=== PATIENT | male | born 1955 | race Caucasian/White ===

== ENCOUNTER 2016-12-10 22:25 | Emergency (ER) | payer MEDICAID, OTHER ==
[~2016-12-10 22:25] MED LIST: ALBU0.08 NEB; ALBUAER3 INH; ASPI81TA11 PO; BUPR1TAB29 PO; CYCL1TAB29 PO; IBUP800T23 PO; LOVA40TA PO; SPIRCAP INH; SYMB160A INH; TRAZ50TA12 PO
[2016-12-10 22:30] VITALS: BP 148/93; PULSE 102; RESP 16; TEMP 97.7; O2SAT 98
[2016-12-10] MEDS ORDERED: SODIUM CHLOR 0.9% 1000 ML INJ 1,000 ML IV SCH (22:35)
[2016-12-10] MEDS ORDERED: SODIUM CHLORIDE 0.9% FLUSH 5 ML FLUSH IVF PRN (22:45)
--- NOTE | 2016-12-10 22:45 | PD ---
HPI Chief Complaint: Laceration/Skin Injury Time Seen by Provider: 22:35 Travel History International Travel<30 days: No Contact w/Intl Traveler<30days: No Traveled to known affect area: No History of Present Illness HPI Patient is 61-year-old male presents after trip and fall from home. Patient admits to heavy drinking tonight. He is coming by his girlfriend. Apparently patient tripped over cobblestoning pathway and impacted his face cutting the medial canthus of his right eye. Patient is fairly belligerent on arrival and states he doesn't need stitches and wants to leave. He is clearly clinically intoxicated. Denies any loss of consciousness. His intoxication limits his other history. PFSH Past Medical History COPD: Yes Diminished Hearing: No Respiratory: Yes (EMPHYSEMA/COPD) Social History Alcohol Use: Yes (Daily) Tobacco Use: Yes (2 PPD) Substance Use: No Allergies-Medications (Allergen,Severity, Reaction): Coded Allergies: No Known Allergies (Unverified , 12/10/16) Reported Meds & Prescriptions Reported Meds & Active Scripts Active Albuterol Neb (Albuterol Sulfate) 2.5 Mg/3 Ml Neb 2.5 Mg NEB TID NEB PRN Aspirin EC (Aspirin) 81 Mg Tabdr 81 Mg PO DAILY Symbicort Inh (Budesonide/Formoterol Fumarate) 160-4.5 Mcg/Act Aero 2 Puff INH Q12HR Reported Lovastatin 40 Mg Tab 40 Mg PO DAILY Bupropion HCl ER 12 HR (Bupropion HCl) 150 Mg Tab 150 Mg PO Q12HR Trazodone (Trazodone HCl) 50 Mg Tab 50 Mg PO HS Spiriva Handihaler (Tiotropium Inh) 18 Mcg Cap 18 Mcg INH DAILY 1 capsule = 18 mcg Ibuprofen 800 Mg Tab 800 Mg PO Q6HR PRN Flexeril (Cyclobenzaprine HCl) 10 Mg Tab 10 Mg PO TID Proair Hfa 8.5 GM Inh (Albuterol Sulfate) 90 Mcg/Act Aer 2 Puff INH Q4-6H PRN 108 mcg/actuation Review of Systems Except as stated in HPI: all other systems reviewed are Neg Physical Exam Narrative GENERAL: WD/WN with obvious laceration to the left periorbital skin as well as left forehead. SKIN: Warm and dry. HEAD: Normocephalic. No racoons eyes, no battles' sign. There is a 2 cm laceration over the right brow as well as a laceration on the inferior palpebral surface leading up and extending through the medial canthus. EYES: No scleral icterus. No injection or drainage. EOMI. Pupils PERRLA. Does not allow fluroscein staining. No teardrop pupil. Vision intact. NECK: Supple, trachea midline. No JVD or lymphadenopathy. CARDIOVASCULAR: Regular rate and rhythm without murmurs, gallops, or rubs. RESPIRATORY: Breath sounds equal bilaterally. No accessory muscle use. GASTROINTESTINAL: Abdomen soft, non-tender, nondistended. MUSCULOSKELETAL: No cyanosis, or edema. BACK: Nontender without obvious deformity. No CVA tenderness. Data Data Last Documented VS Vital Signs Date Time Temp Pulse Resp B/P Pulse Ox O2 Delivery O2 Flow Rate FiO2 12/11/16 01:51 80 16 140/76 100 12/10/16 22:30 97.7 Orders Alcohol (Ethanol) (12/10/16 22:35) Basic Metabolic Panel (Bmp) (12/10/16 22:35) Complete Blood Count With Diff (12/10/16 22:35) Blood Glucose (12/10/16 22:35) Ecg Monitoring (12/10/16 22:35) Iv Access Insert/Monitor (12/10/16 22:35) Oximetry (12/10/16 22:35) Sodium Chloride 0.9% Flush (Ns Flush) (12/10/16 22:45) Sodium Chlor 0.9% 1000 Ml Inj (Ns 1000 M (12/10/16 22:35) Ct Brain W/O Iv Contrast(Rout) (12/11/16 ) Ct Cerv Spine W/O Contrast (12/11/16 ) Ct Facial Bones W/O Iv Cont (12/11/16 ) Labs Laboratory Tests Test 12/10/16 22:58 White Blood Count 5.4 TH/MM3 Red Blood Count 4.57 MIL/MM3 Hemoglobin 14.6 GM/DL Hematocrit 41.2 % Mean Corpuscular Volume 90.0 FL Mean Corpuscular Hemoglobin 31.9 PG Mean Corpuscular Hemoglobin 35.5 % Concent Red Cell Distribution Width 12.9 % Platelet Count 310 TH/MM3 Mean Platelet Volume 6.9 FL Neutrophils (%) (Auto) 67.7 % Lymphocytes (%) (Auto) 23.4 % Monocytes (%) (Auto) 6.3 % Eosinophils (%) (Auto) 1.8 % Basophils (%) (Auto) 0.8 % Neutrophils # (Auto) 3.6 TH/MM3 Lymphocytes # (Auto) 1.3 TH/MM3 Monocytes # (Auto) 0.3 TH/MM3 Eosinophils # (Auto) 0.1 TH/MM3 Basophils # (Auto) 0.0 TH/MM3 CBC Comment DIFF FINAL Differential Comment Sodium Level 139 MEQ/L Potassium Level 4.0 MEQ/L Chloride Level 105 MEQ/L Carbon Dioxide Level 27.0 MEQ/L Anion Gap 7 MEQ/L Blood Urea Nitrogen 6 MG/DL Creatinine 0.64 MG/DL Estimat Glomerular Filtration 126 ML/MIN Rate Random Glucose 105 MG/DL Calcium Level 8.4 MG/DL Ethyl Alcohol Level 196 MG/DL MDM Medical Decision Making Medical Screen Exam Complete: Yes Emergency Medical Condition: Yes Differential Diagnosis Open globe excluded clinically. Cannot exclude corneal abraision. Laceration. Tear duct injury. Tetanus status unknown. Narrative Course Patient is a 61-year-old male presents to the emergency department for laceration to the right periorbital skin involving the lateral canthus and likely involving the tear duct. Discussed with the patient of this a fairly severe injury and initially he is quite adamant about me not being able to treat him in the emergency department. He is visibly intoxicated and has alcohol level in next 200. Patient was discussed with Dr. Barnard who is on-call for ophthalmology and states this patient certainly would not be a candidate for going to the operating room under general anesthesia for repair of his wound given he is unable to sign consents this time. He can be managed non- emergently according to Dr. Barnard with a wet pressure dressing to the right eye and follow-up with an regional otr company driver. This was discussed with the patient's girlfriend who is clinically sober at the bedside. However the patient still needs a CAT scan of his head C-spine and face to rule out occult injuries as this cannot be done clinically as he is not sober. Patient ultimately agreed for a CAT scan was performed and negative. Dressing was applied as above. And he was counseled to follow up very closely with Dr. Barnard. Patient refused tetanus shot. Patient was discharged to girlfriend's care who accepted responsibility. DIscussed need for close follow up. Now that clinical emergency has been excluded, and patient has safe discharge, there is no clinical reason to hold him here without his consent. Did discuss likelihood of scarring as well as chronic dry eye with him and girlfriend if he does not follow up. Diagnosis Primary Impression: Orbital laceration Qualified Code: S05.41XA - Orbital laceration, right, initial encounter Additional Impression: Laceration of forehead Qualified Code: S01.81XA - Laceration of forehead, initial encounter Referrals: Sonny Barnard MD Additional Instructions: Call Dr. Barnard first thing in the morning. Leave the dressing in place please see Dr. Barnard Disposition: 01 DISCHARGE HOME Condition: Stable Jhony Edmonds MD Dec 10, 2016 22:45
[2016-12-10 23:11] LABS: AUTOMATED NEUTROPHIL # 3.6 TH/MM3 (1.8-7.7); BASOPHIL % 0.8 % (0.0-2.0); EOSINOPHIL # 0.1 TH/MM3 (0-0.4); EOSINOPHIL % 1.8 % (0.0-4.0); HEMATOCRIT 41.2 % (39.0-51.0); HEMO FLAGS DIFF FINAL; LYMPH % 23.4 % (9.0-44.0); LYMPHOCYTE # 1.3 TH/MM3 (1.0-4.8); MEAN CORPUSCULAR HEMOGLOBIN 31.9 PG (27.0-34.0); MEAN CORPUSCULAR HGB CONC 35.5 % (32.0-36.0); MONO % 6.3 % (0.0-8.0); NEUT % 67.7 % (16.0-70.0); PLATELET COUNT 310 TH/MM3 (150-450); RED BLOOD COUNT 4.57 MIL/MM3 (4.50-5.90); RED CELL DISTRIBUTION WIDTH 12.9 % (11.6-17.2); WHITE BLOOD COUNT 5.4 TH/MM3 (4.0-11.0)
--- NOTE | 2016-12-11 01:18 | RADRPT ---
EXAM DATE/TIME: 12/11/2016 01:02 [facility] COMPARISON: CT BRAIN W/O CONTRAST, February 02, 2014, 22:26. INDICATIONS : Fall , head pain. RADIATION DOSE: 38.80 CTDIvol (mGy) MEDICAL HISTORY : Chronic obstructive pulmonary disease. Emphysema. SURGICAL HISTORY : None. ENCOUNTER: Initial ACUITY: 1 day PAIN SCALE: 4/10 LOCATION: cranial TECHNIQUE: Multiple contiguous axial images were obtained of the head. Using automated exposure control and adj ustment of the mA and/or kV according to patient size, radiation dose was kept as low as reasonably a chievable to obtain optimal diagnostic quality images. FINDINGS: The ventricles are symmetric and normal. No abnormal extra-axial fluid collections are identified. Th ere is no evidence of intracranial mass or hemorrhage. There is nothing to suggest acute infarction. Extracranial structures are benign and intact. CONCLUSION: Stable brain appearance. No acute intracranial findings. Phillip Castro MD on December 11, 2016 at 1:15 Board Certified Radiologist. This report was verified electronically.
--- NOTE | 2016-12-11 01:33 | RADRPT ---
EXAM DATE/TIME: 12/11/2016 01:02 [facility] COMPARISON: CT CERVICAL SPINE W/O CONTRAST, February 02, 2014, 22:33. INDICATIONS : Fall, evaluate for possible fracture. RADIATION DOSE: 18.76 CTDIvol (mGy) MEDICAL HISTORY : Chronic obstructive pulmonary disease. Emphysema. SURGICAL HISTORY : None. ENCOUNTER: Initial ACUITY: 1 day PAIN SCALE: 3/10 LOCATION: neck TECHNIQUE: Volumetric scanning of the cervical spine was performed. Multiplanar reconstructions in the sagittal, coronal and oblique axial planes were performed. Using automated exposure control and adjustment o f the mA and/or kV according to patient size, radiation dose was kept as low as reasonably achievable to obtain optimal diagnostic quality images. FINDINGS: There is minimal anterolisthesis C4 relative to C5. There is no evidence of fracture. No bony canal c ompromise is identified. Moderate degenerative changes are present with disc space narrowing most sig nificantly at C5-6 and C6-7. Posterior facet arthropathy is present multiple levels. There is no evid ence of paraspinal hematoma. CONCLUSION: Degenerative changes. No evidence of acute bony injury in the cervical spine. Phillip Castro MD on December 11, 2016 at 1:17 Board Certified Radiologist. This report was verified electronically.
--- NOTE | 2016-12-11 01:37 | RADRPT ---
EXAM DATE/TIME: 12/11/2016 01:02 [facility] COMPARISON: No previous studies available for comparison. INDICATIONS : Fall, Facial laceration above right eye. RADIATION DOSE: 59.85 CTDIvol (mGy) MEDICAL HISTORY : Chronic obstructive pulmonary disease. Emphysema. SURGICAL HISTORY : None. ENCOUNTER: Initial ACUITY: 1 day PAIN SCORE: 4/10 LOCATION: Right facial TECHNIQUE: Volumetric scanning of the facial bones was performed. Using automated exposure control and adjustme nt of the mA and/or kV according to patient size, radiation dose was kept as low as reasonably achiev able to obtain optimal diagnostic quality images. FINDINGS: There is right supraorbital scalp laceration without evidence of underlying fracture. There is mild p olypoid mucosal disease in the facial sinuses. No evidence of orbitofacial fracture. The mandible and temporomandibular joints are intact. CONCLUSION: No evidence of facial fracture. Phillip Castro MD on December 11, 2016 at 1:32 Board Certified Radiologist. This report was verified electronically.
[2016-12-11 01:51] VITALS: BP 140/76
[2017-01-07] MEDS ORDERED: CYCL1TAB29 PO (12:06)
[2017-01-24] MEDS ORDERED: ALBUAER3 INH (11:23)
[2017-01-29] MEDS ORDERED: ALBUAER3 INH (08:34)
[2017-01-29] MEDS ORDERED: CYCL1TAB29 PO (08:34)
[2017-01-29] MEDS ORDERED: ALBU0.08 NEB (08:34)
[2017-01-29] MEDS ORDERED: SPIRCAP INH (08:34)
[2017-01-29] MEDS ORDERED: ASPI81TA11 PO (08:34)
[2017-01-29] MEDS ORDERED: IBUP400T20 PO (08:34)
[2017-01-29] MEDS ORDERED: SYMB160A INH (08:34)
[2017-01-29] MEDS ORDERED: LOVA40TA PO (08:36)
[2017-02-17] MEDS ORDERED: IBUP400T20 PO (08:47)
[2017-04-22] MEDS ORDERED: CYCL1TAB29 PO (13:28)
[2017-04-22] MEDS ORDERED: CLAR10CA3 PO (13:28)
[2017-04-22] MEDS ORDERED: LOVA40TA PO (13:28)
[2017-04-22] MEDS ORDERED: IBUP400T20 PO (13:28)
[2017-04-29] MEDS ORDERED: ASPI81TA11 PO (09:56)
[2017-05-19] MEDS ORDERED: SPIRCAP INH (09:35)
[2017-05-19] MEDS ORDERED: LOVA40TA PO (09:35)
[2017-05-19] MEDS ORDERED: TRAZ50TA12 PO (09:35)
[2017-05-19] MEDS ORDERED: SYMB160A INH (09:35)
[2017-05-19] MEDS ORDERED: ALBUAER3 INH (09:35)
[2017-05-19] MEDS ORDERED: CLAR10CA3 PO (09:35)
== END 2016-12-11 02:01 | disposition home or self-care (01) ==
LOC: NEPA 22:25
DX: S01.111A Laceration without foreign body of right eyelid and periocular area, initial encounter (principal); W01.198A Fall on same level from slipping, tripping and stumbling with subsequent striking against other object, initial encounter; Y93.89 Activity, other specified; Y92.9 Unspecified place or not applicable; J44.9 Chronic obstructive pulmonary disease, unspecified
CPT/HCPCS: 70450; 70486; 72125; 80048; 80320; 85025; 96360; 99284; J7030